=== PATIENT | female | born 1965 | race Caucasian/White ===

== ENCOUNTER → 2021-04-03 | Outpatient (CLI) | payer OTHER | LOC: HEART 5 14:20 | DX: R06.02 Shortness of breath (principal); J44.9 Chronic obstructive pulmonary disease, unspecified | CPT/HCPCS: 94060; 94729 ==

== ENCOUNTER → 2021-04-10 | Outpatient (CLI) | payer OTHER | LOC: RAD 11:16 | DX: M19.90 Unspecified osteoarthritis, unspecified site (principal) | CPT/HCPCS: 36600; 71046; 82803 ==

== ENCOUNTER 2021-04-17 21:00 | Emergency (ER) | payer OTHER | END 2021-04-17 22:00 | disposition left against medical advice (07) | LOC: ER1 21:00 | DX: Z53.21 Procedure and treatment not carried out due to patient leaving prior to being seen by health care provider (principal) ==